=== PATIENT | female | born 1990 | race American Indian/Alaskan Native ===

== ENCOUNTER 2016-08-30 00:10 | Inpatient (IN) | payer MEDICAID ==
[2016-08-30] MEDS ORDERED: SUBLIMAZE IV PRN (02:38)
[2016-08-30] MEDS ORDERED: MINERAL OIL PO PRN (02:38)
[2016-08-30] MEDS ORDERED: ZOFRAN IV PRN ×2 (02:38→06:24)
[2016-08-30] MEDS ORDERED: ePHEDrine SULFATE IV PRN ×2 (02:38→05:35)
[2016-08-30] MEDS ORDERED: POLYCILLIN/NS 2 GM/100 ML 100 ML IV ONE (02:38)
[2016-08-30] MEDS ORDERED: NARCAN 0.4 MG/1 ML IV PRN (02:38)
[2016-08-30] MEDS ORDERED: BRETHINE SUB-Q PRN (02:38)
[2016-08-30] MEDS ORDERED: BRETHINE IVP PRN (02:38)
[2016-08-30] MEDS ORDERED: STADOL IV PRN (02:38)
--- NOTE | 2016-08-30 02:42 | History and Physical Report ---
History of Present Illness Date of examination: 08/30/16 Chief complaint: Contractions History of present illness: Pt is a 26yo BF EDC 09/05/16; EGA 39 1/7 weeks presents to L&D complaining of RUC's q 3-5 mins. She had a decel in Triage, so BPP obtained was 4/8. She was therefore admitted for augmentation of labor. She received care at [facility] since 9 weeks and course has been unremarkable except for smoking. records are available and GBS is Positive. Past History Past Medical History: other (Vitamin D deficiency) Past Surgical History: no surgical history [employer] History: herpes Family/Genetic History: diabetes, hypertension Social history: no significant social history, single - Obstetrical History Expected Date of Delivery: 09/05/16 Actual Gestation: 39 Week(s) 1 Day(s) : 3 Medications and Allergies Allergies Allergy/AdvReac Type Severity Reaction Status Date / Time No Known Allergies Allergy Verified 03/08/16 23:27 Home Medications Medication Instructions Recorded Confirmed Last Taken Type Doxycycline Monohydrate 100 mg PO BID #20 capsule 12/12/14 Unknown Rx [Doxycycline Monohydrate CAP] Docusate Sodium [Colace] 100 mg PO BID PRN #30 capsule 09/04/15 Unknown Rx Fluconazole [Diflucan TAB] 150 mg PO ONCE #2 tablet 09/04/15 Unknown Rx Magnesium Citrate [Citrate of 300 ml PO ONCE #1 solution 09/04/15 Unknown Rx Magnesia] Doxylamine/Pyridoxine HCl 1 each PO Q6HR PRN #30 tablet. 03/09/16 Unknown Rx [Paula Santana 10-10 mg Tablet] Review of Systems All systems: negative - Vital Signs Vital signs: Vital Signs Pulse BP 102 H 127/82 08/30/16 00:25 08/30/16 00:25 Temp Pulse Resp BP Pulse Ox 102 H 127/82 08/30/16 00:25 08/30/16 00:25 - Physical Exam Breasts: Positive: deferred Cardiovascular: Regular rate Lungs: Positive: Clear to auscultation Abdomen: Positive: normal appearance Genitourinary (Female): Positive: normal external genitalia Vagina: Positive: normal moisture Uterus: Positive: enlarged Extremities: Positive: normal - Obstetrical FHR: category 2 Uterine Contraction Monitor Mode: External Cervical Dilatation: 3 Cervical Effacement Percentage: 50 station: -2 Uterine Contraction Pattern: Regular Uterine Tone Measurement Phase: Contraction Uterine Contraction Intensity: Moderate Results Result Diagrams: 08/30/16 03:00 All other labs normal. Ultrasound: report reviewed (BPP 11/15) Assessment and Plan - Patient Problems (1) 39 weeks gestation of Diagnosis Date: 08/30/16 Current Visit: Yes Status: Acute Plan to address problem: A: IUP @ 39 1/7 weeks Non-reassuring surveillance Positive GBS P: Admit for pitocin augmentation of labor IV Ampicillin Expectant vaginal delivery (2) Non-reassuring electronic monitoring tracing Diagnosis Date: 08/30/16 Current Visit: Yes Status: Acute
[2016-08-30] MEDS ORDERED: LACTATED RINGERS 1,000 ML IV SCH (03:00)
[2016-08-30] MEDS ORDERED: PITOCin/NS 20 UNIT/1000ML DRIP 1,000 ML IV SCH ×2 (03:00→07:00)
[2016-08-30] MEDS ORDERED: PITOCin/NS 30 UNIT/500ML 500 ML IV SCH ×2 (03:00)
[2016-08-30 03:12] LABS: Hematocrit 32.9 % (30.3-42.9); Hemoglobin 11.2 gm/dl (10.1-14.3); Mean Corpuscular HGB Conc 34 % (30-34); Mean Corpuscular Hemoglobin 34 pg (28-32); Mean Corpuscular Volume 98 fl (79-97); Platelet Count 177 K/mm3 (140-440); Red Blood Count 3.36 M/mm3 (3.65-5.03); Red Cell Distribution Width 12.9 % (13.2-15.2); White Blood Count 11.1 K/mm3 (4.5-11.0)
[2016-08-30] MEDS ORDERED: ePHEDrine SULFATE ONE (05:17)
[2016-08-30] MEDS ORDERED: NARCAN 2 MG/2 ML IV PRN (05:35)
--- NOTE | 2016-08-30 05:36 | Anesthesia Consultation ---
Anesthesia Consult and Med Hx Date of service: 08/30/16 - Airway Anesthetic Teeth Evaluation: Good ROM Head & Neck: Adequate Mental/Hyoid Distance: Adequate Mallampati Class: Class II Intubation Access Assessment: Probably Good - Pulmonary Exam CTA: Yes - Cardiac Exam Cardiac Exam: RRR - Pre-Operative Health Status ASA Pre-Surgery Classification: ASA2 Proposed Anesthetic Plan: Epidural - Pulmonary Hx Asthma: No COPD: No Hx Pneumonia: No - Cardiovascular System Hx Hypertension: No - Central Nervous System Hx Seizures: No Hx Psychiatric Problems: No - Endocrine Hx Renal Disease: No Hx End Stage Renal Disease: No Hx Hypothyroidism: No Hx Hyperthyroidism: No - Hematic Hx Anemia: Yes Hx Sickle Cell Disease: No - Other Systems Hx Alcohol Use: No
[2016-08-30] MEDS ORDERED: fentaNYL-BUPIV 2 MCG/ML-0.125% 100 ML EPIDURAL SCH (06:00)
--- NOTE | 2016-08-30 06:23 | Procedure Note ---
OB Delivery Note - Delivery Date of Delivery: 08/30/16 Surgeon: REBEKAH PATEL Estimated blood loss: 100cc - Vaginal Delivery presentation: vertex Delivery position: OA Intrapartum events: none Delivery induction: none Delivery augmentation: pitocin Delivery monitor: external FHT, external uterine Route of delivery: Delivery placenta: spontaneous Delivery cord: nuchal cord (x2) Episiotomy: none Delivery laceration: none Anesthesia: epidural - A at 1 minute: 8 at 5 minutes: 9 Infant Gender: Male (2897gms)
[2016-08-30] MEDS ORDERED: PHENERGAN PR PRN (06:24)
[2016-08-30] MEDS ORDERED: LANSINOH TP PRN (06:24)
[2016-08-30] MEDS ORDERED: PHENERGAN PO PRN (06:24)
[2016-08-30] MEDS ORDERED: MILK OF MAGNESIA PO PRN (06:24)
[2016-08-30] MEDS ORDERED: TUCKS PAD TP PRN (06:24)
[2016-08-30] MEDS ORDERED: BENADRYL PO PRN (06:24)
[2016-08-30] MEDS ORDERED: NORCO 5/325 PO PRN (06:24)
[2016-08-30] MEDS ORDERED: TYLENOL PO PRN (06:24)
[2016-08-30] MEDS ORDERED: DERMOPLAST TP PRN (06:24)
[2016-08-30] MEDS ORDERED: DULCOLAX PR PRN (06:24)
[2016-08-30] MEDS ORDERED: POLYCILLIN/NS 1 GM/50 ML 50 ML IV SCH (07:00)
[2016-08-30] MEDS ORDERED: SODIUM CHLORIDE FLUSH SYRINGE 10 ML IV PRN (07:00)
[2016-08-30] MEDS: PRENATAL VITAMIN PO SCH (10:22)
[2016-08-30] MEDS: COLACE PO SCH ×2 (10:22→23:25)
[2016-08-30] MEDS: FEOSOL PO SCH ×2 (10:23→23:25)
--- NOTE | 2016-08-30 10:24 | Ultrasound Report ---
BIOPHYSICAL PROFILE: 2 - breathing movements 0 - movements 0 - posture and tone 2 - Qualitative amniotic fluid volume 4 - TOTAL SCORE OF POSSIBLE 8 Heart Rate (bpm) 140
[2016-08-30] MEDS: MOTRIN PO SCH ×3 (12:47→23:25)
[2016-08-30 18:28] LABS: Hematocrit 28.6 % (30.3-42.9); Hemoglobin 9.7 gm/dl (10.1-14.3)
[2016-08-31] MEDS: MOTRIN PO SCH ×3 (05:17→17:29)
[2016-08-31] MEDS ORDERED: BOOSTRIX IM ONE (06:00)
[2016-08-31] MEDS ORDERED: M-M-R II VACCINE SUB-Q ONE (06:24)
--- NOTE | 2016-08-31 08:54 | Progress Note ---
Assessment and Plan A. POD # 2, normal course Desires DC today Anemia Interested in IUD for contraception Wants circ for baby P DC home FE daily Pt to call office tomorrow to schedule circ F/U for pp visit and contraception in 6 wk Subjective - Subjective Date of service: 08/31/16 (PO Day #2, S/P RCS) Patient reports: appetite normal, voiding normally, pain well controlled, ambulating normally (Requests DC today) [place]: doing well, bottle feeding Objective - Vital Signs Latest vital signs: Vital Signs Temp Pulse Pulse Resp BP 08/31/16 01:08 98.4 F 67 18 99/55 08/30/16 16:50 98.3 F 81 20 103/59 08/30/16 12:45 98.4 F 66 20 104/68 08/30/16 11:53 98.4 F 68 20 100/50 08/30/16 08:55 98.1 F 78 18 116/58 Intake and Output 08/30/16 08/31/16 08/31/16 22:59 06:59 14:59 Intake Total 600 600 Output Total 1700 300 Balance -1100 300 Intake: Oral 120 Intake, Free Water 480 600 Output: Urine 1700 300 Void 1700 300 Other: Total, Intake Amount 120 Total, Output Amount 800 300 # Voids Void 2 1 - Exam Breasts: Present: deferred Cardiovascular: Present: Regular rate Lungs: Present: Clear to auscultation Abdomen: Present: normal appearance, soft, normal bowel sounds Extremities: Present: normal Incision: Present: normal, dry, intact - Labs Labs: Abnormal lab results 08/30/16 Range/Units 18:18 Hgb 9.7 L (10.1-14.3) gm/dl Hct 28.6 L (30.3-42.9) %
--- NOTE | 2016-08-31 08:58 | Discharge Summary ---
Providers - Providers Date of Admission: 08/30/16 02:39 Date of discharge: 08/31/16 Attending physician: REBEKAH MULLINS MD Primary care physician: REBEKAH MULLINS MD Hospitalization Reason for admission: active labor, rupture of membranes Delivery: Procedure: repeat low transverse Incision: normal Other procedures: none complications: other (mild anemia) Discharge diagnosis: IUP at term delivered baby: male Condition at discharge: Good Disposition: DISCHARGED TO HOME OR SELFCARE Plan - Provider Discharge Summary Activity: no sex for 6 weeks, no heavy lifting 4 weeks, no strenuous exercise Diet: routine Instructions: routine Additional instructions: [] Smoking cessation referral if applicable(refer to patient education folder for contact #) [] Refer to [facility]'s [facility] Booklet Call your doctor immediately for: * Fever > 100.5 * Heavy vaginal bleeding ( >1 pad per hour) * Severe persistent headache * Shortness of breath * Reddened, hot, painful area to leg or breast * Drainage or odor from incision. * Keep incision clean and dry at all times and follow doctor's instructions regarding bathing/showering - Follow up plan Follow up: REBEKAH BOYCE MD [Primary Care Provider] - TABITHA PAVON CNM [Advanced Practice Nurse] - 6 Weeks
--- NOTE | 2016-08-31 09:44 | Discharge Summary ---
Providers - Providers Date of Admission: 08/30/16 02:39 Date of discharge: 08/31/16 (Note: disregard previous DC summary: info was docuemnted for a different pt) Attending physician: REBEKAH MULLINS MD Primary care physician: REBEKAH MULLINS MD Hospitalization Delivery: Episiotomy: none Laceration: none Other procedures: none complications: none Discharge diagnosis: IUP at term delivered [place] baby: male Condition at discharge: Good Disposition: DISCHARGED TO HOME OR SELFCARE Plan - Provider Discharge Summary Activity: no sex for 6 weeks, no heavy lifting 4 weeks, no strenuous exercise Diet: routine Instructions: routine Additional instructions: [] Smoking cessation referral if applicable(refer to patient education folder for contact #) [] Refer to [facility]'s [facility] Booklet Call your doctor immediately for: * Fever > 100.5 * Heavy vaginal bleeding ( >1 pad per hour) * Severe persistent headache * Shortness of breath * Reddened, hot, painful area to leg or breast * Drainage or odor from incision. * Keep incision clean and dry at all times and follow doctor's instructions regarding bathing/showering - Follow up plan Follow up: TABITHA PAVON CNM [Advanced Practice Nurse] - 6 Weeks REBEKAH BOYCE MD [Primary Care Provider] -
[2016-08-31] MEDS: FEOSOL PO SCH (11:30)
[2016-08-31] MEDS: PRENATAL VITAMIN PO SCH (11:30)
[2016-08-31] MEDS: COLACE PO SCH (11:30)
[2016-09-01] MEDS: COLACE PO SCH ×2 (00:10→12:35)
[2016-09-01] MEDS: FEOSOL PO SCH ×2 (00:10→12:35)
[2016-09-01] MEDS: MOTRIN PO SCH ×3 (00:10→12:35)
[2016-09-01] MEDS: PRENATAL VITAMIN PO SCH (02:35)
[2016-09-01 04:45] VITALS: BP 118/52
== END 2016-09-01 13:00 | disposition home or self-care (01) | DRG 775 ==
LOC: TRG 00:10 → LD 02:39 → OB 09:38
PROVIDERS: ADMIT Obstetrics & Gynecology; ATTEND Obstetrics & Gynecology
PROC: 10E0XZZ Delivery of Products of Conception, External Approach (ICD-10-PCS; principal; 2016-08-30)
PROC: 3E0S3CZ (ICD-10-PCS; 2016-08-30)
PROC: 00HU33Z Insertion of Infusion Device into Spinal Canal, Percutaneous Approach (ICD-10-PCS; 2016-08-30)
DX: O99.824 Streptococcus B carrier state complicating childbirth (principal); O76 Abnormality in fetal heart rate and rhythm complicating labor and delivery; O90.81 Anemia of the puerperium; O69.81X0 Labor and delivery complicated by cord around neck, without compression, not applicable or unspecified; Z3A.39 39 weeks gestation of pregnancy; Z37.0 Single live birth; Z83.3 Family history of diabetes mellitus; Z82.49 Family history of ischemic heart disease and other diseases of the circulatory system
CPT/HCPCS: 36415; 76819; 85014; 85018; 85027; 86850; 86900; 86901; 90471; 90707; 90715; J0290; J0595; J2590; J7120